=== PATIENT | male | born 1975 | race Caucasian/White ===

== ENCOUNTER 2017-07-28 17:08 | Emergency (ER) | payer MEDICAID, OTHER ==
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
[2017-07-28 18:16] VITALS: BP 135/97
== END 2017-07-28 18:17 | disposition home or self-care (01) ==
DX: S06.0X0A Concussion without loss of consciousness, initial encounter (principal); Y04.0XXA Assault by unarmed brawl or fight, initial encounter

== ENCOUNTER 2017-08-10 07:19 | Emergency (ER) | payer MEDICAID ==
[2017-08-10] MEDS ORDERED: NS 1,000 ML IV ONE (07:26)
--- NOTE | 2017-08-10 07:41 | CPEKG ---
Heart Rate: 48 RR Interval: 1250 P-R Interval: 176 QRSD Interval: 92 QT Interval: 472 QTC Interval: 422 P Ashton: 73 QRS Ashton: 49 T Wave Ashton: 61 EKG Severity - OTHERWISE NORMAL ECG - EKG Impression: SINUS BRADYCARDIA Electronically Signed By: Manoj Ramos 10-Aug-2017 11:51:24
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
[2017-08-10 08:29] LABS: PLATELET COUNT 213 10^3/uL (150-400)
[2017-08-10 09:32] VITALS: BP 115/91
== END 2017-08-10 09:35 | disposition home or self-care (01) ==
LOC: CED 07:19
DX: R55 Syncope and collapse (principal); R06.09 Other forms of dyspnea; F17.200 Nicotine dependence, unspecified, uncomplicated; E86.9 Volume depletion, unspecified
CPT/HCPCS: 71046-PO; 80048-PO; 84484-PO

== ENCOUNTER 2018-02-24 18:06 | Emergency (ER) | payer MEDICAID ==
[2018-02-24 18:27] VITALS: BP 160/99
--- NOTE | 2018-02-24 19:11 | EDPHY ---
H & P Stated Complaint: Flu s/s Time Seen by Provider: 02/24/18 19:10 HPI/ROS: HPI: This is a 42-year-old male who presents with Chief Complaint: Aches, hot cold sweats Location: Body Quality: Aches, hot and cold sweats Duration: 10 days Signs and Symptoms: no fever, no nausea, no vomiting, no diarrhea, no urinary symptoms, no chest pain, no shortness of breath, no wheezing, + cough, no sore throat, no neck stiffness, no joint pain, no swollen glands, no ear pain, no rash Timing: Acute, constant, not improving Severity: Moderate Context: Patient reports he had sudden onset of body aches, hot and cold sweats with nonproductive cough over the last week. Patient reports that over the last 3 days his cough is worsened in his harsh in keeping him up at night. Patient is to [facility] (old room [facility]) reports same sx - wants work note saying hes ok to work. diagnosed with bacterial bronchitis given Augmentin, prednisone, cough medicine. Patient has miss work over the last several days and needs a work note to return. Did not receive influenza vaccine this year. No history of lung disease. Modifying Factors: None Comment: ROS: A comprehensive 10 system review of systems is otherwise negative aside from elements mentioned in the history of present illness. MEDICAL/SURGICAL/SOCIAL HISTORY: Medical history: Generally healthy. Does not take any regular medications. Surgical history: Denies Social history: with children. Tobacco user. Family history noncontributory. CONSTITUTIONAL: Nontoxic-appearing middle-aged white male, smells of tobacco smoke, awake and alert, no obvious distress HEENT: Atraumatic and normocephalic, PERRL, EOMI. Nares patent; no rhinorrhea; no nasal mucosal edema. Tympanic membranes clear. Oropharynx clear, no exudate and moist pink mucosa. Airway patent. No lymphadenopathy. No meningismus. Cardiovascular: Normal S1/S2, regular rate, regular rhythm, without murmur rub or gallop. PULMONARY/CHEST: Symmetrical and nontender. Faint expiratory wheezing bilaterally. Good air movement. No accessory muscle usage. ABDOMEN: Soft, nondistended, nontender, no rebound, no guarding, no peritoneal signs, no masses or organomegaly. No CVAT. EXTREMITIES: 2/2 pulses, strength 5/5, no deformities, no clubbing, no cyanosis or edema. NEUROLOGICAL: no focal neuro deficits. GCS 15. SKIN: Warm and dry, no erythema. no rash. Good capillary refill. Source: Patient Exam Limitations: No limitations - Personal History Current Tetanus/Diphtheria Vaccine: Yes - Medical/Surgical History Hx Asthma: No Hx Chronic Respiratory Disease: No Hx Diabetes: No Hx Cardiac Disease: No Hx Renal Disease: No Hx Cirrhosis: No Hx Alcoholism: No Hx HIV/AIDS: No Hx Splenectomy or Spleen Trauma: No Other PMH: denies - Social History Smoking Status: Current every day smoker Constitutional: Initial Vital Signs Temperature (C) 36.5 C 02/24/18 18:24 Heart Rate 55 L 02/24/18 18:24 Respiratory Rate 18 02/24/18 18:24 Blood Pressure 160/99 H 02/24/18 18:24 O2 Sat (%) 97 02/24/18 18:24 O2 Delivery Mode Room Air Allergies/Adverse Reactions: No Known Allergies Allergy (Verified 02/24/18 18:27) Home Medications: Medication Instructions Recorded Albuterol Sulfate [Proair Hfa] 1 - 2 puffs IH Q4-6PRN PRN #1 02/24/18 [email or web address] Amoxicillin/Clavulanate Pot 875 mg PO BID #14 tab 02/24/18 [Augmentin 875 MG TAB (*)] predniSONE [Deltasone] 40 mg PO DAILY 5 Days tablet 02/24/18 Medical Decision Making ED Course/Re-evaluation: Vital signs reviewed and show elevated blood pressure with no hypoxia/ respiratory distress Lungs show faint expiratory wheezing Patient politely declined chest x-ray due to concern over cost. Tobacco user and Due to symptoms being greater than 10 days, will start antibiotic, albuterol inhaler, steroid burst This patient was seen under the supervision of my secondary supervising physician. Discussed this patient with Dr. Gallardo. Differential Diagnosis: Differential diagnosis includes but is not limited to asthma exacerbation, bronchitis, pneumonia. Departure - Departure Disposition: Home, Routine, Self-Care Clinical Impression: Acute bacterial bronchitis Condition: Good Instructions: Acute Bronchitis (ED) Additional Instructions: Please refrain from using tobacco or marijuana products. Take antibiotics, steroids, albuterol inhaler as directed. Please wash your hands frequently, cover your cough, and stay home until you are symptom free. Return to the ER immediately if you experience fevers/chills, shortness of breath, abdominal pain, inability to tolerate oral intake, or any other symptoms that concern you. Referrals: [facility],. [Clinic] - 5-7 days, if not improved Stand Alone Forms: Work Excuse Prescriptions: Albuterol Sulfate [Proair Hfa] 1 - 2 puffs IH Q4-6PRN PRN #1 [email or web address] PRN Reason: Short Of Breath/Dyspnea Amoxicillin/Clavulanate Pot [Augmentin 875 MG TAB (*)] 875 mg PO BID #14 tab predniSONE [Deltasone] 40 mg PO DAILY 5 Days tablet
== END 2018-02-24 19:20 | disposition home or self-care (01) ==
DX: J20.9 Acute bronchitis, unspecified (principal)